=== PATIENT | female | born 1955 | race Caucasian/White ===

== ENCOUNTER 2018-12-20 08:39 | Day surgery (SDC) | payer BC ==
[2018-12-19 15:05] VITALS: BMI 29.8
--- NOTE | 2018-12-20 11:07 | OP ---
Operative Note - Note: Operative Date: 12/20/18 Pre-Operative Diagnosis: left tibial draining wound Operation: left tibial incision and drainage, biopsy and culture Post-Operative Diagnosis: Same as Pre-op Surgeon: Chintan Urbano Anesthesiologist/[employer]: Evens Coburn Anesthesia: General Operative Report Dictated: Yes
[2018-12-20] MEDS ORDERED: MIDAZOLAM HCL 2 MG/2 ML SINGLE DOSE VIAL ONE (11:08)
[2018-12-20] MEDS ORDERED: BUPIVACAINE HCL/PF 2.5 MG/ML - 30 ML VIAL IJ ONE (11:11)
[2018-12-20] MEDS ORDERED: PROPOFOL 20 ML ONE ×3 (11:33→12:27)
[2018-12-20] MEDS ORDERED: ONDANSETRON 4 MG/2 ML VIAL ONE (11:50)
[2018-12-20] MEDS ORDERED: DEXAMETHASONE SOD PHOSPHATE 4 MG/1 ML VIAL ONE (11:50)
[2018-12-20] MEDS ORDERED: LIDOCAINE HCL/PF 2% SDV 5ML VIAL ONE (11:50)
[2018-12-20] MEDS ORDERED: BUPIVACAINE HCL/PF 0.25% (2.5MG/ML) 10 ML VIAL IJ ONE (13:05)
[2018-12-20] MEDS ORDERED: oxyCODONE HCL 5 MG TABLET PO ONE (15:05)
[2018-12-20] MEDS ORDERED: oxyCODONE HCL 5 MG TABLET ONE (15:22)
[2018-12-20] MEDS ORDERED: ONDANSETRON 4 MG/2 ML VIAL IVPUSH PRN (15:26)
[2018-12-20] MEDS ORDERED: oxyCODONE HCL 5 MG TABLET PO PRN (15:26)
[2018-12-20] MEDS ORDERED: PROMETHAZINE HCL 25 MG/1 ML VIAL IVPUSH PRN (15:26)
[2018-12-20] MEDS ORDERED: LACTATED RINGERS SOLUTION 1,000 ML IV SCH (15:30)
[2018-12-20 15:38] VITALS: BP 150/84; TEMP 98.1
[2018-12-20 15:42] VITALS: PULSE 60
--- NOTE | 2018-12-23 20:19 | OP ---
DATE OF OPERATION: 12/20/2018 PREOPERATIVE DIAGNOSIS: Left knee draining sinus. POSTOPERATIVE DIAGNOSIS: Left knee draining sinus. PROCEDURE: Left knee irrigation and drainage, debridement, biopsy of skin, biopsy of bone, and cultures. SURGEON: Chintan Urbano MD ANESTHESIA: General plus local. POSTOPERATIVE CONDITION: Stable. COMPLICATIONS: None. SPECIMENS: Skin biopsy x1, bone graft specimen x2, culture superficial x1 and deep x1. INDICATIONS: This is a 63-year-old female who had developed some drainage over a previous surgical wound. She had previously developed drainage in the same area secondary to a reaction to a calcium screw. The screw had been removed and new calcium bone graft had been inserted. Without any particular trauma or other reason, she started having drainage again. The last procedure was about 4 years ago. Given the persistent drainage and redness, she was indicated for operative care. Discussed the option of nonoperative care with observation, oral antibiotics. Previously, culture taken in the office was negative. Patient elected for operative care. We did discuss that osteomyelitis sometimes is an incurable disease and that if this is the case, she may require lifelong antibiotic suppression. I reviewed surgical risks, including bleeding, infection or persistent infection, need for further surgery, postoperative pain and stiffness, fracture of the debrided area, neurovascular injury. We discussed medical risks such as heart attack, stroke, DVT, PE, and . I addressed the use of perioperative antibiotic and DVT prophylaxis. I addressed the patient's questions and concerns. She voiced understanding and elected to proceed. The patient was brought to the operating room, where general anesthetic was administered. The left lower extremity was now prepped and draped in the usual sterile fashion. A preoperative dose of antibiotics was withheld pending cultures. The usual timeout procedure was performed. Incision was now planned out, to ellipse out the draining sinus. This was then carried down through skin and subcutaneous tissue. Electrocautery was used to maintain hemostasis. The sinus tract itself was sent for pathology analysis. The tract was then dissected along. It should be noted that a small amount of purulence was noted superficially. None was noted more deeply. As dissection was carried down, the aperture of the ACL tunnel was identified. Utilizing curettes, the calcium bone graft was excised from the tunnel. No connection to the joint was palpated with the curettes. Fluoroscopy was used to verify that the bone graft had been successfully removed, which was seen as darker areas on the initial x-ray image. In addition, a cyst-like lesion was noted on the MRI. A curette was passed in the direction of the cyst deep to the tunnel, and a small amount of clear fluid was obtained. The cyst lining was debrided using the curette as well. The wound was copiously pulse-lavaged and alternating with additional debridement, for a total of 9 liters. After having sent off the culture specimens, it should be noted that antibiotics were administered. After satisfactorily removing all of the graft and not being able to obtain any more, the deep tissue was approximated over using number 1 Vicryl. The subcutaneous tissue was approximated using 2-0 Vicryl. The skin was closed using 3-0 nylon. Sterile dressings were placed. Prior to placing the dressings, Marcaine was injected about the edges of the wound. The patient was then extubated, transferred to recovery room in stable condition. She will be discharged on p.o. antibiotics for a 2-week course. Kristin JOY/[id number]
--- NOTE | 2018-12-26 12:53 | PATH ---
Surgical Pathology Report Patient Name: ROVERTO GODDARD [facility]. Rec. #: [id number] /Age/Gender: 1955 (Age: 63) / F Account: [id number] Location: [facility] AMBULATORY Taken: 12/20/2018 Received: 12/20/2018 Reported: 12/26/2018 Physicians: Chintan Urbano M.D. Specimen(s) Received A: LEFT KNEE SINUS TRACT B: LEFT KNEE TIBIAL TUNNEL DEBRIS Clinical History Left tibia osteomyelitis Final Diagnosis A. KNEE, LEFT, SINUS TRACT, EXCISION: SKIN SHOWING ULCERATION WITH MARKED ACUTE AND CHRONIC INFLAMMATION AND GRANULATION TISSUE FORMATION. B. KNEE, LEFT, TIBIAL TUNNEL DEBRIS, REMOVAL/EXCISION: FRAGMENTS OF BONE SHOWING ACUTE AND CHRONIC OSTEOMYELITIS. NECROINFLAMMATORY INFILTRATE AND FIBROCOLLAGENOUS TISSUE. Electronically Signed Alisia Nava M.D. Gross Description A. Received in formalin labeled "left knee sinus tract," is a 0.9 x 0.3 cm arteaga, elliptical, unoriented portion of skin excised to a depth of 0.2 cm. The epidermal surface displays a 0.3 x 0.2 cm arteaga, raised lesion. The specimen is trisected and entirely submitted in one cassette. B. Received in formalin labeled "left knee tibial tunnel debris," is a 1.1 x 1.0 x 0.2 cm aggregate of arteaga, focally calcified tissue fragments. The formalin is filtered and the specimen is entirely submitted in one cassette, following decalcification. /12/21/2018 saudi12/21/2018
== END 2018-12-20 15:42 | disposition home or self-care (01) ==
LOC: FASU 08:39
PROVIDERS: ATTEND Orthopaedic Surgery Sports Medicine
PROC: 0JBP0ZX Excision of Left Lower Leg Subcutaneous Tissue and Fascia, Open Approach, Diagnostic (ICD-10-PCS; 2018-12-20)
PROC: 0SBD0ZX Excision of Left Knee Joint, Open Approach, Diagnostic (ICD-10-PCS; principal; 2018-12-20 11:49)
DX: M86.462 Chronic osteomyelitis with draining sinus, left tibia and fibula (principal)
CPT/HCPCS: 73560-TC-LT-FY; 87070; 87075; 87205; 88304-TC; 94760